=== PATIENT | male | born 1985 | race Caucasian/White ===

== ENCOUNTER 2023-07-03 11:39 | Emergency (ER) | payer SELFPAY ==
[~2023-07-03] VITALS: Ht 175.3 cm; Wt 78.0 kg
[2023-07-03 11:54] VITALS: BP 116/66; PULSE 78; RESP 16; TEMP 97.8; O2SAT 99
== END 2023-07-03 15:53 | disposition left against medical advice (07) ==
LOC: ER 11:39
DX: H53.8 Other visual disturbances (principal)
CPT/HCPCS: 99291